=== PATIENT | male | born 1950 | race Caucasian/White ===

== ENCOUNTER 2016-11-08 09:23 | Emergency (ER) | payer MEDICARE ==
--- NOTE | 2016-11-08 10:04 | ED Physician Documentation ---
History of Present Illness - Stated complaint Stated Complaint: DIZZY, CHILLS, UNSTABLE - Chief complaint Chief Complaint: General - History obtained from History obtained from: Patient, Family - History of Present Illness Timing: Today - Additonal information Additional information: 66-year-old male with a prior history of brainstem CVA about 9 years ago has developed some dizziness and chills. He has had some issue with his left ear for the past 10 days with muffled hearing and extraneous sounds. He has been using a Kathy pot he has been getting some yellow-green drainage from that and he has had chills. He has ulcerations to his left ankle been present for several months and he is using Melaleuca honey to treat these Review of Systems Constitutional: reports: Chills, Myalgias, Fatigue. denies: Fever Eyes: denies: Decreased vision Ears: reports: Loss of hearing, Ear pain, Tinnitus/ringing Nose: reports: Rhinorrhea / runny nose, Congestion Throat: reports: Sore throat Cardiac: denies: Chest pain / pressure, Palpitations Respiratory: denies: Dyspnea, Cough GI: denies: Abdominal Pain, Nausea, Vomiting : denies: Dysuria, Frequency Skin: reports: Rash, Lesions Musculoskeletal: reports: Extremity swelling. denies: Neck pain, Back pain, Extremity pain Neurologic: denies: Generalized weakness, Focal weakness, Numbness PD PAST MEDICAL HISTORY - Present Medications Home Medications: Ambulatory Orders Medication Instructions Recorded Confirmed Amox/Clav 875/125 [Augmentin] 1 each PO Q12H #30 tablet 11/08/16 Naproxen Sodium [Aleve] 2 - 4 tab PO DAILY PRN 11/08/16 11/08/16 - Allergies Allergies/Adverse Reactions: Allergies Allergy/AdvReac Type Severity Reaction Status Date / Time No Known Drug Allergies Allergy Verified 11/08/16 09:32 - Social History Does the pt smoke?: Yes Smoking Status: Current every day smoker PD ED PE NORMAL - Vitals Vital signs reviewed: Yes (Hypertensive) - General General: Alert and oriented X 3, No acute distress, Well developed/nourished - HEENT HEENT: Atraumatic, PERRL, EOMI, Moist mucous membranes, Pharynx benign, Other - Neck Neck: Supple, no meningeal sign (The left TM is thickened and lichenified without erythema or distortion of landmarks the right is clear pharynx is clear) , No bony TTP - Cardiac Cardiac: RRR - Respiratory Respiratory: No respiratory distress, Clear bilaterally - Abdomen Abdomen: Soft, Non tender - Back Back: No CVA TTP, No spinal TTP - Derm Derm: Normal color, Warm and dry - Extremities Extremities: No deformity, Other (There are superficial ulcerations to the skin surrounding the ankle on the left side. There are photographs patient is brought in of his ankle from last night showing a deep violaceous erythema around the entire ankle and following treatment with the honey the ulcerations to the skin of formed and the erythema has receded.) - Neuro Neuro: No motor deficit, No sensory deficit - Psych Psych: Normal mood, Normal affect Results - Vitals Vitals: Vital Signs - 24 hr 11/08/16 11/08/16 09:28 10:42 Temperature 36.0 C L Heart Rate 68 62 Respiratory 18 16 Rate Blood Pressure 153/87 H 136/76 H O2 Saturation 98 98 Oxygen O2 Source Room air - Labs Labs: Laboratory Tests 11/08/16 11/08/16 11/08/16 10:30 10:30 10:30 WBC 5.0 RBC 4.98 Hgb 14.3 Hct 41.8 L MCV 83.9 MCH 28.7 MCHC 34.2 RDW 13.9 Plt Count 168 MPV 6.4 L Neut # 3.1 Lymph # 1.0 L Dukes # 0.5 Eos # 0.3 Baso # 0.0 Absolute Nucleated RBC 0.00 Nucleated RBCs 0.0 ESR Sodium 137 Potassium 4.2 Chloride 106 Carbon Dioxide 23 Anion Gap 8.0 BUN 23 H Creatinine 1.1 Estimated GFR (MDRD) 67 L Glucose 112 H Calcium 8.8 Total Bilirubin 0.7 AST 27 ALT 15 Alkaline Phosphatase 82 Troponin I < 0.04 C-Reactive Protein < 1.0 Total Protein 7.1 Albumin 3.8 Globulin 3.3 Albumin/Globulin Ratio 1.2 Lipase 30 11/08/16 10:30 WBC RBC Hgb Hct MCV MCH MCHC RDW Plt Count MPV Neut # Lymph # Dukes # Eos # Baso # Absolute Nucleated RBC Nucleated RBCs ESR 78 H Sodium Potassium Chloride Carbon Dioxide Anion Gap BUN Creatinine Estimated GFR (MDRD) Glucose Calcium Total Bilirubin AST ALT Alkaline Phosphatase Troponin I C-Reactive Protein Total Protein Albumin Globulin Albumin/Globulin Ratio Lipase - Rads (name of study) CT head without Radiology: Prelim report reviewed (Impression: 1. No acute abnormality. No posttraumatic change seen intracranial. No hemorrhages, mass, hydrocephalus or findings suspicious for stroke.2. Postprocedure changes in the right orbit with radiopaque circumferential external scleral band and small amount of air between surgically placed band and underlying globe. No prior study currently available to assess for change. No gross surrounding edema suspicious for an active/aggressive infectious or inflammatory process. Clinical correlation needed.), EMP read indepedently, See rad report CT sinuses Radiology: Prelim report reviewed (Impression: 1. Complete opacification of sphenoid sinuses. Surrounding bony changes show a pattern consistent with chronic reactive change. No expansile or destructive changes. Chronic obstructive sinusitis can have this appearance. No discrete underlying mass is seen. Correlation with MRI with contrast can also be considered for further assessment.2. Mild mucosal thickening in the maxillary sinuses without air- fluid levels or obstructive changes hypoplastic frontal sinuses bilaterally.3. Postoperative changes with external right scleral band and air between the scleral band and right globe. No prior study available to assess acuity. No surrounding inflammatory changes seen to suggest an active/infectious or inflammatory process. Clinical correlation needed.), EMP read indepedently, See rad report Procedures - IVC sono (time) 1000 Bedside IVC sono: IVC measures (cm) (1.6), IVC collapsed c insp (cm) (1.02), Euvolemia PD MEDICAL DECISION MAKING - ED course Complexity details: reviewed results, re-evaluated patient, considered differential, d/w patient, d/w family ED course: 66-year-old male with no prior history here has had prior CVA to the brainstem about 10 years ago and this morning he has developed some chills and malaise and sinus symptoms. He does not feel dehydrated and his dizziness is now resolved he did not develop nausea.He has been treating wounds on his ankle that appear unusual. They do not appear to be a straightforward cellulitis and I am concerned about a autoimmune vasculitis. He gives further history of a prior incident of autoimmune phenomena in 1979 that required high doses of steroid 4 months. He also gives a history of autoimmune disease in his sister. Here in the emergency department he has sphenoid sinusitis on CT examination. He is treated with dexamethasone and Rocephin in the emergency department and we will place him on some Augmentin. I recommended he follow-up with ENT and with dermatology at the [facility] as I suspect there is an autoimmune phenomena that needs to be addressed. Today his sedimentation rate is markedly elevated CRP is normal as is the white blood cell count. Departure - Departure Disposition: 01 Home, Self Care Clinical Impression: Vasculitis Sphenoid sinusitis Qualifiers: Chronicity: unspecified Qualified Code(s): J32.3 - Chronic sphenoidal sinusitis Condition: Stable Instructions: ED Sinusitis Abx Tx Follow-Up: Anuel Solomon MD [Provider Admit Priv/Credential] - Prescriptions: Amox/Clav 875/125 [Augmentin] 1 each PO Q12H #30 tablet Comments: The markings you have on your ankle are concerning for a autoimmune phenomena. Follow-up with dermatology for further evaluation. The sinus symptoms are expected to improve and if you do not have improvement or have recurrence follow -up with ear nose and throat.
[2016-11-08 10:35] LABS: BASOPHILS % (AUTO) 0.6 %; EOSINOPHILS # (AUTO) 0.3 10^3/uL (0.0-0.7); EOSINOPHILS % (AUTO) 6.5 %; HCT - HEMATOCRIT 41.8 % (42.0-52.0); HGB - HEMOGLOBIN 14.3 g/dL (14.0-18.0); LYMPHOCYTES % (AUTO) 20.6 %; MEAN CORPUSCULAR HEMOGLOBIN 28.7 pg (27.0-31.0); MEAN CORPUSCULAR HGB CONC 34.2 g/dL (32.0-36.0); MEAN CORPUSCULAR VOLUME 83.9 fL (80.0-94.0); MEAN PLATELET VOLUME 6.4 fL (7.4-11.4); MONOCYTES # (AUTO) 0.5 10^3/uL (0.0-1.0); MONOCYTES % (AUTO) 10.8 %; NEUTROPHILS # (AUTO) 3.1 10^3/uL (1.5-6.6); NEUTROPHILS % (AUTO) 61.5 %; RED BLOOD COUNT 4.98 10^6/uL (4.70-6.10); RED CELL DISTRIBUTION WIDTH 13.9 % (12.0-15.0)
--- NOTE | 2016-11-08 10:46 | CT Preliminary Report ---
Exam: CT Head W/O IMPRESSION: 1. No acute abnormality. No posttraumatic change seen intracranially. No hemorrhage, mass, hydrocepha daniel or findings suspicious for stroke. 2. Postprocedure changes in right orbit with radiopaque circumferential external scleral band and sma ll amount of air between surgically placed band and underlying globe. No prior study currently availa ble to assess for change. No gross surrounding edema suspicious for an active/aggressive infectious o r inflammatory process. Clinical correlation needed. [facility] SITE ID: [id number]
--- NOTE | 2016-11-08 10:49 | CT Report ---
EXAM: CT HEAD EXAM DATE: 11/08/2016 10:35 AM. CLINICAL HISTORY: Dizziness head injury 2 months ago. . COMPARISON: None. TECHNIQUE: Multiaxial CT images were obtained from the foramen magnum to the vertex. IV contrast: Non e. Reformats: Coronal. In accordance with CT protocol optimization, one or more of the following dose reduction techniques w ere utilized for this exam: automated exposure control, adjustment of mA and/or KV based on patient s ize, or use of iterative reconstructive technique. FINDINGS: Parenchyma: No intraparenchymal hemorrhage. No evidence of mass, midline shift, or CT findings of inf arction. Guerin-white differentiation is distinct. Extraaxial Spaces: Normal for age. No subdural or epidural collections identified. Ventricles: Normal in size and position. Sinuses: Imaged paranasal sinuses and mastoids show no significant abnormality. Bones: No evidence of fracture or calvarial defect. Other: Circumferential radiopaque band around right globe with small amount of air between this struc ture and underlying globe. Orbits otherwise unremarkable. IMPRESSION: 1. No acute abnormality. No posttraumatic change seen intracranially. No hemorrhage, mass, hydrocepha daniel or findings suspicious for stroke. 2. Postprocedure changes in right orbit with radiopaque circumferential external scleral band and sma ll amount of air between surgically placed band and underlying globe. No prior study currently availa ble to assess for change. No gross surrounding edema suspicious for an active/aggressive infectious o r inflammatory process. Clinical correlation needed. [facility] Referring Provider Line: [phone] SITE ID: [id number]
[2016-11-08 10:53] LABS: ALBUMIN/GLOBULIN RATIO 1.2 (1.0-2.2); BILIRUBIN,TOTAL 0.7 mg/dL (0.2-1.0); BUN - BLOOD UREA NITROGEN 23 mg/dL (6-20); CALCIUM 8.8 mg/dL (8.5-10.3); CARBON DIOXIDE - CO2 23 mmol/L (21-32); CHLORIDE 106 mmol/L (101-111); CREATININE 1.1 mg/dL (0.6-1.2); GFR - MDRD 67 (>89); GLUCOSE 112 mg/dL (70-100); LIPASE 30 U/L (22-51); POTASSIUM 4.2 mmol/L (3.5-5.0); SODIUM 137 mmol/L (135-145); TOTAL PROTEIN 7.1 g/dL (6.7-8.2)
--- NOTE | 2016-11-08 10:53 | CT Preliminary Report ---
Exam: CT Sinuses IMPRESSION: 1. Complete opacification of sphenoid sinuses. Surrounding bony changes show a pattern consistent wit h chronic reactive change. No expansile or destructive changes. Chronic obstructive sinusitis can hav e this appearance. No discrete underlying mass is seen. Correlation with MRI with contrast can also b e considered for further assessment. 2. Mild mucosal thickening in the maxillary sinuses without air-fluid levels or obstructive changes. Hypoplastic frontal sinuses bilaterally. 3. Postoperative changes with external right scleral band and air between scleral band and right glob e. No prior study available to assess acuity. No surrounding inflammatory change is seen to suggest a n acute/active infectious or inflammatory process. Clinical correlation needed. [facility] SITE ID: [id number]
--- NOTE | 2016-11-08 10:56 | CT Report ---
EXAM: CT SINUS EXAM DATE: 11/08/2016 10:35 AM. HISTORY: Dizziness. Left ear pain and sinus drainage COMPARISONS: Head CT 11/08/2016. TECHNIQUE: Routine multi-axial CT imaging performed through the sinuses. Iodinated IV contrast: None. Reconstructions: Coronal. In accordance with CT protocol optimization, one or more of the following dose reduction techniques w ere utilized for this exam: automated exposure control, adjustment of mA and/or KV based on patient s ize, or use of iterative reconstructive technique. FINDINGS: RIGHT Frontal: Hypo-plastic. No mucosal thickening. Ethmoid: Mild mucosal thickening. Maxillary: Mild mucosal thickening Sphenoid: Complete opacification Drainage Pathways: The frontal recess, ostiomeatal complex and sphenoethmoidal recess are patent and normal. LEFT Frontal: Hypoplastic. No mucosal thickening. Ethmoid: Normal. Maxillary: Mild mucosal thickening Sphenoid: Complete opacification Drainage Pathways: The frontal recess, ostiomeatal complex and sphenoethmoidal recess are patent and normal. Nasal Cavity: Mild inferior rightward bowing of cartilaginous septum. Posterior septum/bony septum mi dline. No nasal airway occlusion. No mass or significant anatomic abnormality evident. Osseous Structures: Unremarkable. Orbits: Postop change with external scleral band on the right. Small amount of air between scleral ba nd and right globe. Otherwise unremarkable. Other: None. IMPRESSION: 1. Complete opacification of sphenoid sinuses. Surrounding bony changes show a pattern consistent wit h chronic reactive change. No expansile or destructive changes. Chronic obstructive sinusitis can hav e this appearance. No discrete underlying mass is seen. Correlation with MRI with contrast can also b e considered for further assessment. 2. Mild mucosal thickening in the maxillary sinuses without air-fluid levels or obstructive changes. Hypoplastic frontal sinuses bilaterally. 3. Postoperative changes with external right scleral band and air between scleral band and right glob e. No prior study available to assess acuity. No surrounding inflammatory change is seen to suggest a n acute/active infectious or inflammatory process. Clinical correlation needed. [facility] Referring Provider Line: [phone] SITE ID: [id number]
[2016-11-08] MEDS ORDERED: cefTRIAXone 1 GM VIAL IM STA (11:14)
[2016-11-08] MEDS ORDERED: DEXAMETHASONE 10 MG/ML VIAL PO STA (11:25)
[2016-11-08] MEDS ORDERED: cefTRIAXone 1 GM VIAL ONE (11:25)
[2016-11-08] MEDS ORDERED: LIDOCAINE 1% 2 ML VIAL ONE (11:25)
[2016-11-08] MEDS ORDERED: CHERRY SYRUP 10 ML UDC PO ONE (11:32)
[2016-11-08] MEDS ORDERED: DEXAMETHASONE 10 MG/ML VIAL ONE (11:32)
[2016-11-08 11:57] VITALS: BP 133/74
== END 2016-11-08 12:03 | disposition home or self-care (01) ==
LOC: ED 09:23
DX: I77.6 Arteritis, unspecified (principal); J32.3 Chronic sphenoidal sinusitis; Z86.73 Personal history of transient ischemic attack (TIA), and cerebral infarction without residual deficits; F17.200 Nicotine dependence, unspecified, uncomplicated
CPT/HCPCS: 36415; 70450; 70486; 80053; 83690; 84484; 85025; 85651; 86140; 96372; 99283; A9270

== ENCOUNTER 2018-07-26 08:36 | Day surgery (SDC) | payer MEDICARE ==
[2018-07-26] MEDS ORDERED: LACTATED RINGERS 1,000 ML IV ONE (09:16)
[2018-07-26] MEDS ORDERED: MIDAZOLAM 2 MG/2 ML VIAL IVP ONE (09:45)
[2018-07-26] MEDS ORDERED: fentaNYL 250 MCG/5 ML VIAL IVP ONE (09:45)
[2018-07-26] MEDS ORDERED: IOVERSOL 320 100 ML VIAL IVP ONE ×2 (11:11→12:13)
[2018-07-26 11:28] LABS: HGB - HEMOGLOBIN 13.7 g/dL (14.0-18.0); MEAN CORPUSCULAR HEMOGLOBIN 28.5 pg (27.0-31.0); MEAN CORPUSCULAR HGB CONC 33.7 g/dL (32.0-36.0); MEAN CORPUSCULAR VOLUME 84.7 fL (80.0-94.0); MEAN PLATELET VOLUME 6.4 fL (7.4-11.4); RED BLOOD COUNT 4.8 10^6/uL (4.70-6.10); RED CELL DISTRIBUTION WIDTH 13.4 % (12.0-15.0); WHITE BLOOD COUNT 5.9 x10^3/uL (4.8-10.8)
[2018-07-26 11:41] LABS: ALBUMIN 3.6 g/dL (3.2-5.5); ALBUMIN/GLOBULIN RATIO 1.3 (1.0-2.2); BILIRUBIN,TOTAL 1.1 mg/dL (0.2-1.0); CALCIUM 8.5 mg/dL (8.5-10.3); TOTAL PROTEIN 6.4 g/dL (6.7-8.2)
[2018-07-26 12:11] VITALS: BP 137/79
--- NOTE | 2018-07-26 12:36 | CT Report ---
Reason: ABDNORMAL COLONOSCOPY Procedure Date: 07/26/2018 Accession Number: [id number] / [id number] Procedure: CT - Abdomen/Pelvis W CPT Code: FULL RESULT: EXAM: CT ABDOMEN AND PELVIS EXAM DATE: 07/26/2018 12:05 PM. CLINICAL HISTORY: ABNORMAL COLONOSCOPY. COMPARISONS: None. TECHNIQUE: Routine helical CT imaging was performed through the abdomen and pelvis. IV contrast: 100 cc of Optiray 320 contrast. Enteric contrast: No. Reconstructions: Coronal and sagittal. In accordance with CT protocol optimization, one or more of the following dose reduction techniques were utilized for this exam: automated exposure control, adjustment of mA and/or KV based on patient size, or use of iterative reconstructive technique. FINDINGS: Lung Bases: Unremarkable. Liver: Normal. No masses. Gallbladder/Bile Ducts: Unremarkable. Spleen: Normal. Pancreas: Normal. Adrenal Glands: Normal. Kidneys: Normal. No masses or hydronephrosis. Incidental extrarenal pelvis on the left. Peritoneal Cavity/Bowel: There is a 2.5 x 2.5 x 3.7 cm irregular enhancing mass of the cecum just anterior to the ileocecal valve. There is no adenopathy although there are 4-5 mildly dense sub-6 mm nodes in the adjacent mesentery, which are nonspecific. There is a small amount of fat stranding in the medial mesentery. Adjacent appendix is normal. No additional mucosal lesions noted in the colon; small bowel appears normal. No free fluid. Pelvic Organs: Normal. The bladder and visualized pelvic organs are within normal limits. Vasculature: No aneurysms or other significant abnormality. Bones: No significant abnormality. Other: None. IMPRESSION: 1. 2.5 x 2.5 x 3.7 cm enhancing mass of the cecum as described consistent with a primary malignancy/consistent with finding of abnormal colonoscopy. Minor stranding in the adjacent medial mesenteric fat, but no associated adenopathy. [facility]
== END 2018-07-26 08:37 | disposition home or self-care (01) ==
LOC: SDS 08:36
PROVIDERS: ATTEND Surgery
PROC: 0DBH8ZX Excision of Cecum, Via Natural or Artificial Opening Endoscopic, Diagnostic (ICD-10-PCS; principal; 2018-07-26 10:15)
DX: C18.0 Malignant neoplasm of cecum (principal); K64.8 Other hemorrhoids; K57.30 Diverticulosis of large intestine without perforation or abscess without bleeding
CPT/HCPCS: 36415; 45380; 74177; 80053; 82378; 85027; 93005; J3010; J7120; Q9967

== ENCOUNTER 2018-07-27 09:21 | Inpatient (IN) | payer MEDICARE ==
[~2018-07-27 09:21] MED LIST: CEFOXITIN IV ONE; SODIUM CHLORIDE 0.9% IV ONE
[2018-07-27] MEDS ORDERED: LACTATED RINGERS 1,000 ML IV ONE ×2 (09:42→14:51)
--- NOTE | 2018-07-27 10:14 | ANESTHESIA ---
Pre-Anesthesia VS, & Labs - Diagnosis colon mass - Procedure laparoscopic hemicolectomy Vital Signs: Temp Pulse Resp BP Pulse Ox 36.4 C L 70 18 144/87 H 97 07/27/18 09:42 07/27/18 09:42 07/27/18 09:42 07/27/18 09:42 07/27/18 09:42 Height 6 ft 4 in Weight (kg) 123.3 kg Body Mass Index 34.0 - NPO >8 hours Home Medications and Allergies Allergies/Adverse Reactions: Allergies Allergy/AdvReac Type Severity Reaction Status Date / Time No Known Drug Allergies Allergy Verified 11/08/16 09:32 Anes History & Medical History - Anesthetic History Anesthesia Complications: reports: No previous complications - Medical History Cardiovascular: reports: None Pulmonary: reports: None Gastrointestinal: reports: Hepatitis Urinary: reports: None Musculoskeletal: reports: Osteoarthritis, Other Endocrine/Autoimmune: reports: None Skin: reports: Other Smoking Status: Never smoker - Surgical History Eyes Ears Nose Throat (EENT): Detached retina repair, Tonsil/Adenoidectomy, Other Orthopedic: Arthroscopic surgery Exam General: Alert Dental: WNL, Other (front implant, few missing, none loose) Mouth Opening: Greater than 4 Fingerbreadths Mallampati classification: II Thyromental Distance: greater than 6 cm Respiratory: Lungs clear Cardiovascular: Regular rate, Normal S1, Normal S2 Mental/Cognitive Status: Alert/Oriented X3 Plan Anesthesia Type: General Consent for Procedure(s) Verified and Reviewed: Yes Code Status: Attempt Resuscitation ASA classification: 2-Mild systemic disease Is this case an emergency?: No
[2018-07-27] MEDS ORDERED: BUPIVACAINE 0.5% PF 30 ML VIAL ONE (10:34)
[2018-07-27] MEDS ORDERED: BUPIVACAINE 0.5% PF 30 ML VIAL SUBQ ONE ×2 (12:08→15:00)
[2018-07-27] MEDS ORDERED: ceFAZolin 1 GM VIAL IR ONE (14:51)
[2018-07-27] MEDS ORDERED: ROCURONIUM 50 MG/5 ML VIAL IVP ONE (15:00)
[2018-07-27] MEDS ORDERED: GLYCOPYRROLATE 1 MG/5 ML VIAL IVP ONE (15:00)
[2018-07-27] MEDS ORDERED: PROPOFOL 200 MG/20 ML VIAL IVP ONE (15:00)
[2018-07-27] MEDS ORDERED: HYDROmorphone 1 MG/ML SYRINGE IM ONE (15:00)
[2018-07-27] MEDS ORDERED: MIDAZOLAM 2 MG/2 ML VIAL IVP ONE (15:00)
[2018-07-27] MEDS ORDERED: LIDOCAINE-MPF 1% 30 ML VIAL SUBQ ONE (15:00)
[2018-07-27] MEDS ORDERED: KETOROLAC 30 MG/ML VIAL IVP ONE (15:00)
[2018-07-27] MEDS ORDERED: ACETAMINOPHEN 1,000 MG/100 ML 100 ML IV ONE (15:00)
[2018-07-27] MEDS ORDERED: fentaNYL 250 MCG/5 ML VIAL IVP ONE (15:00)
[2018-07-27] MEDS ORDERED: ONDANSETRON 4 MG/2 ML VIAL IVP ONE (15:00)
[2018-07-27] MEDS ORDERED: DEXAMETHASONE 4 MG/ML VIAL IVP ONE (15:00)
[2018-07-27] MEDS ORDERED: NEOSTIGMINE 1 MG/1 ML 10 ML MDV IVP ONE (15:00)
[2018-07-27] MEDS ORDERED: HYDROmorphone 1 MG/ML CARPUJECT IVP PRN (15:49)
[2018-07-27] MEDS ORDERED: ONDANSETRON 4 MG/2 ML VIAL IVP PRN (15:49)
--- NOTE | 2018-07-27 16:07 | OPERATIVE REPORT ---
Operative Report - General Admit Date: 07/27/18 Planned Procedure: Laparoscopic right hemicolectomy, possible open right hemicolectomy, possible ileostomy, possible colostomy Pre-Op Diagnosis: Cecal adenocarcinoma Procedure Performed: SILS laparoscopic right hemicolectomy Post Op Diagnosis: Same - Procedure Note Primary Surgeon: Ziggy Spencer MD Anesthesia Provider: Gerri Corona CRNA Anesthesia Technique: General ET tube, Local (30 mL of half percent Marcaine), Other (TAP block) IV Fluids (mL): 1,800 Estimated Blood Loss (mL): 200 Urine Output (mL): 350 Drain/Tube Type: Duncan Ny round drain, Other (None) Complications: None. - Other Other Information/Narrative: OPERATIVE DESCRIPTION/REPORT: After verbal and written informed consent was obtained detailing the risks of infection, bleeding with all of its risks including transfusion, and the patient was brought to the operative suite and placed initially in the supine position on the operating room table and then once anesthetized in stirrups taking care to pad all extremities. Monitoring devices were applied along with TEDs and pneumatic compressive stockings. Care was taken to avoid pressure points. Prophylactic antibiotics were given. An adequate level of general endotracheal anesthesia was established by [anesthesiologist]. The abdomen was then prepped with ChloraPrep and draped in a sterile fashion. A "time in" then confirmed that the patient was identified with 3 identifiers (name, date and medical record number), the history and physical was in the chart, the signed consent confirming the procedure was in the chart, the patient was in the correct position, the aforementioned prophylactic measures were in place or given, we had the correct personnel and equipment to complete the procedure and that anesthesia, surgery and nursing were given an opportunity to express any concerns. A 4 cm transverse incision was made just supraumbilically starting at the umbilicus and going to the patient's right. Dissection down to the anterior fascia was completed using a scalpel as well as Bovie electrocautery for hemostasis. The anterior fascia was incised using Bovie electrocautery and the rectus muscles were retracted laterally. The posterior fascia and the peritoneum were incised getting entry into the abdomen without incident. The incision was lengthened to the length of our skin incision. Through this opening was placed a SILS port and 3 ports were placed into the SILS gel. The abdomen was then insufflated using carbon dioxide to a steady-state pressure of 15 mmHg with carbon dioxide. The abdomen was then examined and no other overt pathology was noted. In order to complete the operation a 5 mm port was placed 2 fingerbreadths above and 2 fingerbreadths medial to the left anterior iliac spine. This is placed under direct vision without incident. The patient was then place in a rather steep Trendelenberg position with the left lateral decubitus tilt and a medial to lateral approach was employed. The interface of the mesentary and the retroperitoneum was opened using serial application of Ligasure. In so doing and with some traction and countertraction the ileocolic and right colic arteries and their corresponding veins came into view, as well as relatively avascular mesenteric windows, above and below the vessels. Both arteries were circumferentially isolated. The right ureter was seen and carefully preserved. These windows were used for retraction lifting the mesentary to the anterior abdominal wall so as to mini micheline trauma to the tissues. With the ileocolic artery and right colonic artery skeletonized and the right ureter clearly and safely away from the dissection the arteries and veins were ligated using Ligasure as close to their origin as possible to ensure that an adequate lymph node yield was achieved. The terminal ileum were then freed from their lateral attachments using serial application of LigaSure. The appendix was stuck to the right colon and I believed that it would come up with the right colon. Dissection from inferior to superior along the white line of Toldt then allowed the colon to be freely mobilized all the way up to the hepatic flexure. The hepatic flexure was taken in a similar manner with using serial application of the LigaSure. At all times, care was taken to ensure the duodenum was visualized and unharmed. In this manner, I believed that the right colon could be brought to the midline easily. Attachments of the omentum to the distal right colon and proximal transverse colon were taken using serial application of the Ligasure. With this final piece of mobilization I was convinced that the right colon could come medially and the transverese colon inferiorly to allow for resection and anastamosis at the skin level. A Prestige grasper placed through one of the SILS ports. The insufflation was stopped and the SILS port removed leaving the sleeve in place. The Prestige grasper was then used to bring the right colon terminal ileum. Unfortunately, despite the extensive dissection of the right colon with gentle traction the tumor fractured as I was trying to bring it up through the wound. With the tumor fractured, the traction that I could impart on the colon disappeared. As such I could not bring the colon up into the wound, I had to make the incision wider (6.5 cm). With the incision wider, I was able to deliver the ileocecal valve and the cecum into the wound. The mesentary of the terminal ileum was scored with a Bovie and opened with the Ligasure. The terminal ileum was transected with a NILAM 75 stapler and the proximal terminal ileum was placed back into the abdomen. This allowed for much better visualization. Despite the lap aroscopic dissection additional dissection was clearly indicated and the right colon and transverse colon was additionally dissected free with Bovie electrocautery. I was able to free the colon coming "up" the right colon and progressing to the mid-transverse colon. The patient had a significant amount of right colon as it was markedly redundant. The automatic pursestring keno clerk was placed across the terminal ileum proximal to the staple line and the pursestring was created using a 3-0 Prolene on a Rigoberto needle. The stapled end was removed using Carson scissors and the anvil of a 25 mm EEA stapler was placed in the open end. The pursestring suture was then tied tight around the post. A Ary was placed across the proximal transverse colon to minimize spillage and distal to this a colotomy was made to introduce the EEA stapler. The spike of the stapler was placed through the inferior taenia of the mid-transverse colon and the anvil was placed affirmatively over the spike. The stapler was screwed down tight to the "green zone" and fired thus creating the ileocolostomy. The transverse colon proximal to the anastamosis was closed with an application of the NILAM 75 stapler. The NILAM stapler was reloaded and the fired across the ileum and colon thus completing the resection. The specimen including the terminal ileum, appendix, right colon and hepatic flexure and proximal transverse colon was sent off the operative field. It did not require orientation. Digital manipulation showed that the anastomosis was widely patent. This staple lines were then oversewn using 3-0 Vicryl sutures in a Lembert fashion. The anastamosis was visually checked for a leak and there was none. There was no bleeding noted. The anastomosis was then dropped into the abdomen and the abdomen was copiously irrigated using 4 L warm sterile saline. Due to the opening of the colon the last 500 mL of saline included antibiotic in the irrigant. The effluent was clear. The posterior fascia and peritoneum at the umbilicus were approximated using a 0 looped PDS suture in a running fashion. The anterior fascia was approximated using 0 looped PDS in a running fashion. The incision was injected with half percent Marcaine at the fascial and skin level under direct vision. Meticulous hemostasis was obtained using Bovie electrocautery. The skin incision was approximated with a running 4-0 Monocryl. Mastisol and steristrips were applied. At this point a time out was performed that confirmed that all the counts were correctx2, the procedure that was performed, the blood loss, the IV fluids administered, and the patients condition. The prep was washed off and Benzoin and steristrips were applied. Having tolerated the procedure well, the patient was subsequently extubated and taken to recovery room in good and stable condition. [employer] disclaimer: This document was created in part using voice recognition technology. Because of the inherent limitations of the system ([employer]'s [employer] Dictate user manual states that the licensee understands that speech recognition is a statistical process and that recognition errors are inherent in the process), occasional same sounding word substitutions and grammatical errors do occur and persist despite proofreading. Please read this document for context.
[2018-07-27 16:19] LABS: BASOPHILS % (AUTO) 0.2 %; EOSINOPHILS % (AUTO) 0.1 %; LYMPHOCYTES # (AUTO) 0.3 10^3/uL (1.5-3.5); LYMPHOCYTES % (AUTO) 3.6 %; MEAN CORPUSCULAR HEMOGLOBIN 28.6 pg (27.0-31.0); MEAN CORPUSCULAR HGB CONC 32.9 g/dL (32.0-36.0); MEAN CORPUSCULAR VOLUME 86.9 fL (80.0-94.0); MEAN PLATELET VOLUME 6.4 fL (7.4-11.4); MONOCYTES # (AUTO) 0.3 10^3/uL (0.0-1.0); MONOCYTES % (AUTO) 3.5 %; NEUTROPHILS # (AUTO) 6.8 10^3/uL (1.5-6.6); NEUTROPHILS % (AUTO) 92.6 %; PLT - PLATELET COUNT 193 10^3/uL (130-450); RED CELL DISTRIBUTION WIDTH 13.8 % (12.0-15.0); WHITE BLOOD COUNT 7.4 x10^3/uL (4.8-10.8)
[2018-07-27 16:31] LABS: ALBUMIN 3.5 g/dL (3.2-5.5); ALBUMIN/GLOBULIN RATIO 1.4 (1.0-2.2); BILIRUBIN,TOTAL 0.7 mg/dL (0.2-1.0); CALCIUM 8.2 mg/dL (8.5-10.3); CREATININE 1.4 mg/dL (0.6-1.2)
[2018-07-27] MEDS: ACETAMINOPHEN 1,000 MG/100 ML 100 ML IV SCH ×2 (16:36→21:31)
[2018-07-27] MEDS: SODIUM CHLORIDE FLUSH 0.9% 10 ML SYRINGE IVP SCH (16:36)
[2018-07-27] MEDS: PIPERACILLIN/TAZOBACTAM 3.375 GM in SODIUM CHLORIDE 0.9% MINIBAG 100 ML IV SCH (18:58)
[2018-07-27] MEDS: LACTATED RINGERS 1,000 ML IV SCH (21:30)
[2018-07-28] MEDS: PIPERACILLIN/TAZOBACTAM 3.375 GM in SODIUM CHLORIDE 0.9% MINIBAG 100 ML IV SCH ×2 (00:07→06:37)
[2018-07-28] MEDS: SODIUM CHLORIDE FLUSH 0.9% 10 ML SYRINGE IVP SCH ×3 (02:37→16:09)
[2018-07-28] MEDS: ACETAMINOPHEN 1,000 MG/100 ML 100 ML IV SCH ×4 (03:54→22:04)
[2018-07-28 05:40] LABS: HGB - HEMOGLOBIN 13.6 g/dL (14.0-18.0); LYMPHOCYTES # (AUTO) 0.4 10^3/uL (1.5-3.5); LYMPHOCYTES % (AUTO) 3.8 %; MEAN CORPUSCULAR HEMOGLOBIN 28.7 pg (27.0-31.0); MEAN CORPUSCULAR HGB CONC 33.5 g/dL (32.0-36.0); MEAN CORPUSCULAR VOLUME 85.8 fL (80.0-94.0); MEAN PLATELET VOLUME 6.6 fL (7.4-11.4); MONOCYTES # (AUTO) 0.7 10^3/uL (0.0-1.0); MONOCYTES % (AUTO) 7.2 %; NEUTROPHILS # (AUTO) 8.8 10^3/uL (1.5-6.6); PLT - PLATELET COUNT 167 10^3/uL (130-450); RED BLOOD COUNT 4.75 10^6/uL (4.70-6.10); RED CELL DISTRIBUTION WIDTH 13.4 % (12.0-15.0); WHITE BLOOD COUNT 9.9 x10^3/uL (4.8-10.8)
[2018-07-28 05:51] LABS: ALBUMIN 3.2 g/dL (3.2-5.5); ALBUMIN/GLOBULIN RATIO 1.1 (1.0-2.2); BILIRUBIN,TOTAL 0.8 mg/dL (0.2-1.0); CALCIUM 8.2 mg/dL (8.5-10.3); CREATININE 1.1 mg/dL (0.6-1.2)
[2018-07-28] MEDS: PANTOPRAZOLE 40 MG VIAL IVP SCH (06:37)
[2018-07-28] MEDS: SODIUM CHLORIDE FLUSH 0.9% 10 ML SYRINGE IVP PRN (06:38)
[2018-07-28] MEDS: LACTATED RINGERS 1,000 ML IV SCH (16:50)
--- NOTE | 2018-07-28 19:12 | PROVIDER PROGRESS NOTE ---
Subjective - General Admit Date: 07/27/18 Procedure Date: 07/27/18 Post Op Days: 1 Procedure Performed: SILS right hemicolectomy - Review of Systems Wound/Incisions: positive: Healing well. negative: Erythema General: positive: No symptoms (Passing gas. Minimal to no pain.) HEENT: positive: No symptoms Pulmonary: positive: No symptoms Cardiovascular: positive: No symptoms Gastrointestinal: positive: Abdominal pain (Minimal.), Flatus. negative: Nausea, Vomiting, Difficulty swallowing, Constipation, Diarrhea, Melena, Hematochezia Genitourinary: positive: No symptoms Musculoskeletal: positive: No symptoms Skin: positive: No symptoms Psychiatric: positive: No symptoms Objective - Patient Data Reviewed Vital Signs: Yes Vital Signs: Vital Signs x48h Temp Pulse Pulse Resp BP Pulse Ox 07/28/18 17:55 36.8 C 55 L 16 97 07/28/18 16:03 36.8 C 55 L 18 130/69 97 Weight: Weight 07/26/18 07/27/18 07/28/18 23:59 23:59 23:59 Weight (kg) 123.3 kg Intake & Output: Intake and Output Totals x24h 07/26/18 07/27/18 07/28/18 23:59 23:59 23:59 Intake Total 3040 2776.667 Output Total 1475 1200 Balance 1565 1576.667 - Lab Results Lab Results: 07/28/18 05:10 07/28/18 05:10 Other Lab Results: Lab Results x24hrs 07/28/18 07/28/18 07/28/18 Range/Units 07:24 05:10 05:10 WBC 9.9 (4.8-10.8) x10^3/uL RBC 4.75 (4.70-6.10) 10^6/uL Hgb 13.6 L (14.0-18.0) g/dL Hct 40.7 L (42.0-52.0) % MCV 85.8 (80.0-94.0) fL MCH 28.7 (27.0-31.0) pg MCHC 33.5 (32.0-36.0) g/dL RDW 13.4 (12.0-15.0) % Plt Count 167 (130-450) 10^3/uL MPV 6.6 L (7.4-11.4) fL Neut # (Auto) 8.8 H (1.5-6.6) 10^3/uL Lymph # (Auto) 0.4 L (1.5-3.5) 10^3/uL [place] # (Auto) 0.7 (0.0-1.0) 10^3/uL Eos # (Auto) 0.0 (0.0-0.7) 10^3/uL Baso # (Auto) 0.0 (0.0-0.1) 10^3/uL Absolute Nucleated RBC 0.00 x10^3/uL Nucleated RBC % 0.0 /100WBC Sodium 134 L (135-145) mmol/L Potassium 4.4 (3.5-5.0) mmol/L Chloride 103 (101-111) mmol/L Carbon Dioxide 22 (21-32) mmol/L Anion Gap 9.0 (6-13) BUN 13 (6-20) mg/dL Creatinine 1.1 (0.6-1.2) mg/dL Estimated GFR (MDRD) 67 L (>89) Glucose 174 H (70-100) mg/dL POC Whole Bld Glucose 178 H (70 - 100) mg/dL Calcium 8.2 L (8.5-10.3) mg/dL Total Bilirubin 0.8 (0.2-1.0) mg/dL AST 25 (10-42) IU/L ALT 15 (10-60) IU/L Alkaline Phosphatase 76 (42-121) IU/L Total Protein 6.0 L (6.7-8.2) g/dL Albumin 3.2 (3.2-5.5) g/dL Globulin 2.8 (2.1-4.2) g/dL Albumin/Globulin Ratio 1.1 (1.0-2.2) - Current Medications Current Medications: Current Medications Generic Name Dose Route Start Last Admin Trade Name Freq PRN Reason Stop Dose Admin Lactated Ringer's 1,000 mls @ 50 mls/hr 07/27/18 16:00 07/28/18 16:50 Lr IV 50 mls/hr .Q20H LEONARDO Administration Acetaminophen 100 mls @ 400 mls/hr 07/27/18 16:00 07/28/18 16:34 Ofirmev IV Infused Q6H LEONARDO Infusion Pantoprazole Sodium 40 mg 07/28/18 07:00 07/28/18 06:37 Protonix IVP 40 mg QDAC LEONARDO Administration Sodium Chloride 10 ml 07/27/18 17:00 07/28/18 16:09 Normal Saline Flush 0.9% IVP Not Given 0100,0900,1700 LEONARDO Sodium Chloride 10 ml 07/27/18 15:47 07/28/18 06:38 Normal Saline Flush 0.9% IVP 10 ml PRN PRN Administration NEEDED PER PROVIDER ORDERS - Physical Exam Wound/Incisions: positive: Healing well General Appearance: positive: No acute distress (Sitting in chair speaking with visitors. Already made 5 laps around the nursing station today.) Eyes Bilateral: positive: No lid inflammation, Conjunctivae nml, No scleral icterus ENT: positive: No signs of dehydration Neck: positive: Trachea midline Cardiovascular: positive: Regular rate & rhythm Abdomen: positive: Nml bowel sounds, No distention, Tenderness (Almost none.) Extremities: positive: Non-tender, Full ROM, Nml appearance Neurologic/Psychiatric: positive: Oriented x3, Motor nml, Sensation nml, Mood/affect nml ABX Reporting Has patient been on IV antibiotics over the past 48 hours?: Yes Impression/Plan - Problem List Problem List: D1 s/p SILS right hemicolectomy for cecal malignancy ERAS protocol in place. Patient doing even better than expected. Will start general diet now. Ambulating well. Will re-evaluate in AM. I attest that the patient will be discharged or I will attempt transfer within 96 hours of admission.
[2018-07-29] MEDS: ACETAMINOPHEN 1,000 MG/100 ML 100 ML IV SCH ×3 (04:14→15:39)
[2018-07-29] MEDS: SODIUM CHLORIDE FLUSH 0.9% 10 ML SYRINGE IVP SCH ×3 (04:20→15:40)
[2018-07-29 05:31] LABS: BASOPHILS % (AUTO) 0.1 %; EOSINOPHILS % (AUTO) 0.2 %; LYMPHOCYTES # (AUTO) 0.7 10^3/uL (1.5-3.5); LYMPHOCYTES % (AUTO) 7.8 %; MEAN CORPUSCULAR HEMOGLOBIN 28.9 pg (27.0-31.0); MEAN CORPUSCULAR HGB CONC 33.5 g/dL (32.0-36.0); MEAN CORPUSCULAR VOLUME 86.3 fL (80.0-94.0); MEAN PLATELET VOLUME 6.8 fL (7.4-11.4); MONOCYTES # (AUTO) 0.5 10^3/uL (0.0-1.0); NEUTROPHILS # (AUTO) 7.2 10^3/uL (1.5-6.6); NEUTROPHILS % (AUTO) 85.9 %; PLT - PLATELET COUNT 162 10^3/uL (130-450); RED BLOOD COUNT 4.13 10^6/uL (4.70-6.10); RED CELL DISTRIBUTION WIDTH 13.5 % (12.0-15.0); WHITE BLOOD COUNT 8.3 x10^3/uL (4.8-10.8)
[2018-07-29 05:47] LABS: ALBUMIN 3.2 g/dL (3.2-5.5); ALBUMIN/GLOBULIN RATIO 1.1 (1.0-2.2); BILIRUBIN,TOTAL 0.5 mg/dL (0.2-1.0); CALCIUM 8.5 mg/dL (8.5-10.3); CREATININE 1.1 mg/dL (0.6-1.2)
[2018-07-29] MEDS: SODIUM CHLORIDE FLUSH 0.9% 10 ML SYRINGE IVP PRN (05:54)
[2018-07-29] MEDS: PANTOPRAZOLE 40 MG VIAL IVP SCH (05:54)
[2018-07-29] MEDS: LACTATED RINGERS 1,000 ML IV SCH (15:04)
--- NOTE | 2018-07-29 18:00 | PROVIDER PROGRESS NOTE ---
Subjective - General Admit Date: 07/27/18 Procedure Date: 07/27/18 Post Op Days: 2 Procedure Performed: SILS right hemicolectomy - Review of Systems Wound/Incisions: positive: Healing well General: positive: No symptoms (Passing gas. Minimal to no pain.) HEENT: positive: No symptoms Pulmonary: positive: No symptoms Cardiovascular: positive: No symptoms Gastrointestinal: positive: Abdominal pain (Minimal.), Flatus, Melena (Initially some bloody bowel movements now clearing to dark brown.), Hematochezia. negative: Nausea, Vomiting, Difficulty swallowing, Constipation, Diarrhea Genitourinary: positive: No symptoms Musculoskeletal: positive: No symptoms Skin: positive: No symptoms Psychiatric: positive: No symptoms Objective - Patient Data Reviewed Vital Signs: Yes Vital Signs: Vital Signs x48h Temp Pulse Resp BP Pulse Ox 07/29/18 15:55 36.5 C 57 L 20 119/74 97 Weight: Weight 07/27/18 07/28/18 07/29/18 23:59 23:59 23:59 Weight (kg) 123.3 kg Intake & Output: Intake and Output Totals x24h 07/27/18 07/28/18 07/29/18 23:59 23:59 23:59 Intake Total 3040 2876.667 2400 Output Total 1475 1200 Balance 1565 5458.318 2429 - Lab Results Lab Results: 07/29/18 05:10 07/29/18 05:10 Other Lab Results: Lab Results x24hrs 07/29/18 07/29/18 Range/Units 05:10 05:10 WBC 8.3 (4.8-10.8) x10^3/uL RBC 4.13 L (4.70-6.10) 10^6/uL Hgb 12.0 L (14.0-18.0) g/dL Hct 35.6 L (42.0-52.0) % MCV 86.3 (80.0-94.0) fL MCH 28.9 (27.0-31.0) pg MCHC 33.5 (32.0-36.0) g/dL RDW 13.5 (12.0-15.0) % Plt Count 162 (130-450) 10^3/uL MPV 6.8 L (7.4-11.4) fL Neut # (Auto) 7.2 H (1.5-6.6) 10^3/uL Lymph # (Auto) 0.7 L (1.5-3.5) 10^3/uL [place] # (Auto) 0.5 (0.0-1.0) 10^3/uL Eos # (Auto) 0.0 (0.0-0.7) 10^3/uL Baso # (Auto) 0.0 (0.0-0.1) 10^3/uL Absolute Nucleated RBC 0.01 x10^3/uL Nucleated RBC % 0.1 /100WBC Sodium 140 (135-145) mmol/L Potassium 4.0 (3.5-5.0) mmol/L Chloride 109 (101-111) mmol/L Carbon Dioxide 25 (21-32) mmol/L Anion Gap 6.0 (6-13) BUN 16 (6-20) mg/dL Creatinine 1.1 (0.6-1.2) mg/dL Estimated GFR (MDRD) 67 L (>89) Glucose 135 H (70-100) mg/dL Calcium 8.5 (8.5-10.3) mg/dL Total Bilirubin 0.5 (0.2-1.0) mg/dL AST 26 (10-42) IU/L ALT 16 (10-60) IU/L Alkaline Phosphatase 69 (42-121) IU/L Total Protein 6.0 L (6.7-8.2) g/dL Albumin 3.2 (3.2-5.5) g/dL Globulin 2.8 (2.1-4.2) g/dL Albumin/Globulin Ratio 1.1 (1.0-2.2) - Current Medications Current Medications: Current Medications Generic Name Dose Route Start Last Admin Trade Name Freq PRN Reason Stop Dose Admin Lactated Ringer's 1,000 mls @ 50 mls/hr 07/27/18 16:00 07/29/18 15:04 Lr IV 50 mls/hr .Q20H LEONARDO Administration Acetaminophen 100 mls @ 400 mls/hr 07/27/18 16:00 07/29/18 15:39 Ofirmev IV Not Given Q6H LEONARDO Pantoprazole Sodium 40 mg 07/28/18 07:00 07/29/18 05:54 Protonix IVP 40 mg QDAC ELONARDO Administration Sodium Chloride 10 ml 07/27/18 17:00 07/29/18 15:40 Normal Saline Flush 0.9% IVP Not Given 0100,0900,1700 LEONARDO Sodium Chloride 10 ml 07/27/18 15:47 07/29/18 05:54 Normal Saline Flush 0.9% IVP 10 ml PRN PRN Administration NEEDED PER PROVIDER ORDERS - Physical Exam Wound/Incisions: positive: Dressing dry and intact General Appearance: positive: No acute distress (Sitting in chair having consumed 3rd regular meal.) Eyes Bilateral: positive: No lid inflammation, Conjunctivae nml, No scleral icterus Neck: positive: Trachea midline Respiratory: positive: Chest non-tender, No respiratory distress, Breath sounds nml Cardiovascular: positive: Regular rate & rhythm Abdomen: positive: Nml bowel sounds, No distention, Tenderness (Minimal incisional.) Skin: positive: Color nml Extremities: positive: Non-tender, Full ROM, Nml appearance Neurologic/Psychiatric: positive: Oriented x3, Motor nml, Sensation nml, Mood/affect nml Impression/Plan - Problem List Problem List: D2 s/p SILS right hemicolectomy Doing extremely well but bloody bowel movements combined with drop in H&H has me keeping him overnight to ensure that there is no persistent-continuing blood per rectum. Will follow. Heplock IV. Patient doing very well ambulating.
[2018-07-29] MEDS ORDERED: ACETAMINOPHEN 500 MG TABLET PO PRN (18:04)
[2018-07-29] MEDS: oxyCODONE ER 10 MG TABLET PO SCH (21:25)
[2018-07-30] MEDS: SODIUM CHLORIDE FLUSH 0.9% 10 ML SYRINGE IVP SCH ×2 (01:06→11:20)
[2018-07-30 06:32] LABS: BASOPHILS % (AUTO) 0.3 %; EOSINOPHILS # (AUTO) 0.5 10^3/uL (0.0-0.7); EOSINOPHILS % (AUTO) 6.8 %; LYMPHOCYTES # (AUTO) 1.3 10^3/uL (1.5-3.5); LYMPHOCYTES % (AUTO) 18.8 %; MEAN CORPUSCULAR HEMOGLOBIN 29.2 pg (27.0-31.0); MEAN CORPUSCULAR HGB CONC 34.2 g/dL (32.0-36.0); MEAN CORPUSCULAR VOLUME 85.3 fL (80.0-94.0); MEAN PLATELET VOLUME 6.8 fL (7.4-11.4); MONOCYTES # (AUTO) 0.5 10^3/uL (0.0-1.0); MONOCYTES % (AUTO) 7.3 %; NEUTROPHILS # (AUTO) 4.7 10^3/uL (1.5-6.6); NEUTROPHILS % (AUTO) 66.8 %; PLT - PLATELET COUNT 156 10^3/uL (130-450); RED BLOOD COUNT 3.76 10^6/uL (4.70-6.10); RED CELL DISTRIBUTION WIDTH 13.8 % (12.0-15.0); WHITE BLOOD COUNT 7.1 x10^3/uL (4.8-10.8)
[2018-07-30 06:43] LABS: ALBUMIN/GLOBULIN RATIO 1.2 (1.0-2.2); BILIRUBIN,TOTAL 0.4 mg/dL (0.2-1.0); CALCIUM 8.1 mg/dL (8.5-10.3); TOTAL PROTEIN 5.5 g/dL (6.7-8.2)
[2018-07-30] MEDS ORDERED: PANTOPRAZOLE 40 MG TABLET PO SCH (07:00)
[2018-07-30] MEDS: oxyCODONE ER 10 MG TABLET PO SCH (08:04)
[2018-07-30 08:30] VITALS: BP 139/68
--- NOTE | 2018-07-30 10:38 | DISCHARGE SUMMARY ---
"Discharge Summary Admit Date: 07/27/18 Discharge Date: 07/30/18 Discharging Provider: Ziggy Spencer MD Primary Care Provider: Anuel Giron MD Code Status: Attempt Resuscitation Condition at Discharge: Good Discharge Disposition: 01 Home, Self Care - DIAGNOSES Admission Diagnoses: Cecal adenocarcinoma Discharge Diagnoses with Status of Each Condition: Cecal adenocarcinoma resected - HPI History of Present Illness: 67 year old male who presented to me for a screening colonoscopy which was performed on 07/26/18 showing a large obvious cecal malignancy. Patient was kept on clear liquids and CT scan and CEA ordered. Patient was given oral antibiotics to prep colon and taken to the operating room on 07/27/18 where I performed a SILS right hemicolectomy. Patient has done exceedingly well and I kept him an extra day due to concerns about dropping H&H but this has not become a symptomatic issue. Pathology discussed with patient showing negative margins and no lymph node involvement. This cancer stages out to a Stage IIB. The patient should not require chemotherapy but his case will be discussed at [facility]. The patient will be scheduled to see me next week. The patient is not asking for pain medications and should not require them. - CONSULTS | PROCEDURES Consultations: None. Procedures: SILS RIGHT hemicolectomy - HOSPITAL COURSE Hospital Course: Uncomplicated. - ALLERGIES Allergies/Adverse Reactions: Allergies Allergy/AdvReac Type Severity Reaction Status Date / Time No Known Drug Allergies Allergy Verified 11/08/16 09:32 - MEDICATIONS Home Medications: Ambulatory Orders Medication Instructions Recorded Confirmed Ibuprofen 800 mg PO DAILY 07/28/18 07/28/18 - PHYSICAL EXAM AT DISCHARGE General Appearance: positive: No acute distress Eyes Bilateral: positive: No lid inflammation, Conjunctivae nml, No scleral icterus ENT: positive: No signs of dehydration Neck: positive: Trachea midline Respiratory: positive: Chest non-tender, No respiratory distress, Breath sounds nml Cardiovascular: positive: Regular rate & rhythm Abdomen: positive: Non-tender, Abnml bowel sounds (Ever so slightly decreased.) Skin: positive: Color nml Extremities: positive: Non-tender, Full ROM, Nml appearance Neurologic/Psychiatric: positive: Oriented x3, Motor nml, Sensation nml, Mood/affect nml - LABS Result Diagrams: 07/30/18 05:46 07/30/18 05:46 - QUALITY (Female Hip Fx Only) Was patient sent home on osteoporosis medication?: No - FOLLOW UP Follow Up: Ziggy Spencer MD in 7-14 days - TIME SPENT Time Spent in Discharge (Minutes): 45"
--- NOTE | 2018-07-30 10:48 | Discharge Plan ---
Discharge Plan Disposition: 01 Home, Self Care Condition: Good Diet: Regular Activity Restrictions: No lifting > 15 pounds for 6 weeks. Shower Restrictions: No Driving Restrictions: No Weight Bearing: Full Weight Additional Instructions or Follow Up instructions: Call with any questions or concerns. Eat anything and everything. No Smoking: If you smoke, Please STOP! Call for help. Follow-up with: Anuel Solomon MD [Primary Care Provider] - Ziggy Spencer MD [Provider Admit Priv/Credential] -
== END 2018-07-30 11:21 | disposition home or self-care (01) | DRG 331 ==
LOC: MS2 09:21
PROVIDERS: ADMIT Surgery; ATTEND Surgery
PROC: 07TB4ZZ Resection of Mesenteric Lymphatic, Percutaneous Endoscopic Approach (ICD-10-PCS; 2018-07-27)
PROC: 0DTF4ZZ Resection of Right Large Intestine, Percutaneous Endoscopic Approach (ICD-10-PCS; principal; 2018-07-27 11:00)
DX: C18.0 Malignant neoplasm of cecum (principal); D64.9 Anemia, unspecified; M35.9 Systemic involvement of connective tissue, unspecified; Z86.73 Personal history of transient ischemic attack (TIA), and cerebral infarction without residual deficits; Z87.19 Personal history of other diseases of the digestive system; Z79.52 Long term (current) use of systemic steroids
CPT/HCPCS: 36415; 80053; 85025; A9270; J0131; J1170; J3010; J7120

== ENCOUNTER 2019-04-23 12:49 | Emergency (ER) | payer MEDICARE, MEDICAID ==
--- NOTE | 2019-04-23 13:16 | ED Physician Documentation ---
PD HPI ABD PAIN - Stated complaint Stated Complaint: R SIDE PX/ABD SWEWLLING - Chief complaint Chief Complaint: Abd Pain - History obtained from History obtained from: Patient (68-year-old gentleman who last summer had a colonic mass with resection. Operative date was July 27, [address] Spencer. It was a laparoscopic right hemicolectomy. He woke this morning with a sensation of swelling and mild pain in the right side of the abdomen radiating to the right back. There was no injury. No nausea. Bowel movements have been normal.) Review of Systems Ten Systems: 10 systems reviewed and negative Constitutional: denies: Fever, Chills Cardiac: denies: Chest pain / pressure, Palpitations Respiratory: denies: Dyspnea, Cough PD PAST MEDICAL HISTORY - Past Medical History Cardiovascular: None Respiratory: None Endocrine/Autoimmune: None GI: Hepatitis : None HEENT: Chronic vision loss, Chronic sinusitis, Other Musculoskeletal: Osteoarthritis, Other Derm: Other - Past Surgical History Ortho: Arthroscopic surgery HEENT: Detached retina repair, Tonsil/Adenoidectomy, Other - Present Medications Home Medications: Ambulatory Orders Medication Instructions Recorded Confirmed Ibuprofen 800 mg PO DAILY 07/28/18 07/28/18 - Allergies Allergies/Adverse Reactions: Allergies Allergy/AdvReac Type Severity Reaction Status Date / Time No Known Drug Allergies Allergy Verified 11/08/16 09:32 - Social History Does the pt smoke?: Yes Smoking Status: Never smoker - Family History Family history: reports: Non contributory PD ED PE NORMAL - Vitals Vital signs reviewed: Yes - General General: Alert and oriented X 3, No acute distress - HEENT HEENT: PERRL, EOMI - Neck Neck: Supple, no meningeal sign, No bony TTP - Cardiac Cardiac: RRR, No murmur - Respiratory Respiratory: No respiratory distress, Clear bilaterally - Abdomen Abdomen: Other (Mild tenderness in the right lower abdomen with a sensation of bloating or swelling focal there, possibly a deep hernia.) - Back Back: No CVA TTP, No spinal TTP - Derm Derm: Other (No shingles rash in the area) - Extremities Extremities: No edema, No calf tenderness / cord - Neuro Neuro: Alert and oriented X 3, Normal speech Results - Vitals Vitals: Vital Signs - 24 hr 04/23/19 04/23/19 12:54 15:41 Temperature 36 C L Heart Rate 64 68 Respiratory 18 18 Rate Blood Pressure 154/69 H 138/85 H O2 Saturation 99 98 Oxygen O2 Source Room air - Labs Labs: Laboratory Tests 04/23/19 04/23/19 13:45 13:45 WBC 5.0 RBC 5.40 Hgb 15.3 Hct 46.2 MCV 85.6 MCH 28.3 MCHC 33.1 RDW 13.1 Plt Count 189 MPV 8.7 Neut # (Auto) 3.0 Lymph # (Auto) 1.2 L [place] # (Auto) 0.6 Eos # (Auto) 0.2 Baso # (Auto) 0.0 Absolute Nucleated RBC 0.00 Nucleated RBC % 0.0 Sodium 138 Potassium 4.5 Chloride 104 Carbon Dioxide 25 Anion Gap 9.0 BUN 18 Creatinine 1.1 Estimated GFR (MDRD) 67 L Glucose 96 Calcium 8.6 Total Bilirubin 0.7 AST 27 ALT 18 Alkaline Phosphatase 79 Total Protein 7.3 Albumin 4.2 Globulin 3.1 Albumin/Globulin Ratio 1.4 Lipase 31 - Rads (name of study) CT A/P Radiology: EMP read contemporaneously (Right colonic resection, small bilateral indirect fat-containing inguinal hernias) PD MEDICAL DECISION MAKING - ED course ED course: Presents with right-sided abdominal pain and a sensation of swelling there. CT was negative and his labs are negative. No shingles rash at this juncture but advised to watch for same. Close follow-up precautions were given. Departure - Departure Disposition: 01 Home, Self Care Clinical Impression: Abdominal pain Qualifiers: Abdominal location: right lower quadrant Qualified Code(s): R10.31 - Right lower quadrant pain Condition: Good Record reviewed to determine appropriate education?: Yes Instructions: ED Abdominal Pain Unkn Cause Comments: Your CAT scan is basically normal, you have small inguinal hernias which would not explain the issues you are having today. Return for new or worsening symptoms, make sure you watch out for singles rash as discussed. And return for same.
[2019-04-23] MEDS ORDERED: IOVERSOL 320 100 ML VIAL IVP ONE ×2 (13:52→14:59)
[2019-04-23 14:24] LABS: BASOPHILS % (AUTO) 0.6 %; EOSINOPHILS # (AUTO) 0.2 10^3/uL (0.0-0.7); EOSINOPHILS % (AUTO) 3.8 %; HGB - HEMOGLOBIN 15.3 g/dL (14.0-18.0); LYMPHOCYTES # (AUTO) 1.2 10^3/uL (1.5-3.5); LYMPHOCYTES % (AUTO) 23.8 %; MEAN CORPUSCULAR HEMOGLOBIN 28.3 pg (27.0-31.0); MEAN CORPUSCULAR HGB CONC 33.1 g/dL (32.0-36.0); MEAN CORPUSCULAR VOLUME 85.6 fL (80.0-94.0); MEAN PLATELET VOLUME 8.7 fL (7.4-11.4); MONOCYTES # (AUTO) 0.6 10^3/uL (0.0-1.0); MONOCYTES % (AUTO) 11.2 %; NEUTROPHILS % (AUTO) 60.4 %; PLT - PLATELET COUNT 189 10^3/uL (130-450); RED CELL DISTRIBUTION WIDTH 13.1 % (12.0-15.0)
[2019-04-23 14:36] LABS: ALBUMIN 4.2 g/dL (3.2-5.5); ALBUMIN/GLOBULIN RATIO 1.4 (1.0-2.2); BILIRUBIN,TOTAL 0.7 mg/dL (0.2-1.0); CALCIUM 8.6 mg/dL (8.5-10.3); CREATININE 1.1 mg/dL (0.6-1.2); TOTAL PROTEIN 7.3 g/dL (6.7-8.2)
--- NOTE | 2019-04-23 15:31 | CT Report ---
Reason: Right side abd pain Procedure Date: 04/23/2019 Accession Number: [id number] / [id number] Procedure: CT - Abdomen/Pelvis W CPT Code: Final Report FULL RESULT: EXAM: CT ABDOMEN AND PELVIS EXAM DATE: 04/23/2019 02:58 PM. CLINICAL HISTORY: Right abdominal pain, history of colon resection for colon cancer in July 2018. Right lower quadrant abdominal bulging. COMPARISONS: ABDOMEN/PELVIS W/ 07/26/2018 11:56 AM. TECHNIQUE: Routine helical CT imaging was performed through the abdomen and pelvis. IV contrast: 100 cc Optiray 320. Enteric contrast: No. Reconstructions: Coronal and sagittal. In accordance with CT protocol optimization, one or more of the following dose reduction techniques were utilized for this exam: automated exposure control, adjustment of mA and/or KV based on patient size, or use of iterative reconstructive technique. FINDINGS: Lung Bases: Unremarkable. Liver: A small cystic focus in the left hepatic lobe measures 9 mm similar to prior exam. The liver is otherwise unremarkable. Gallbladder/Bile Ducts: Unremarkable. Spleen: Normal. Pancreas: Normal. Adrenal Glands: Normal. Kidneys: The right kidney and ureter are unremarkable. A left extrarenal pelvis is unchanged, likely normal variant. No calculi or hydronephrosis. Peritoneal Cavity/Bowel: The right colon has been resected in the interval with an ileocolonic anastomosis in the expected location of the proximal transverse colon. No evidence for bowel obstruction, acute inflammatory process or recurrent neoplasm. No extravasation or free fluid present. No adenopathy. Pelvic Organs: The urinary bladder, prostate and rectum are within normal limits. No free fluid or adenopathy. Small fat-containing indirect inguinal hernias are present bilaterally, slightly increased in size compared to prior exam. Vasculature: No aneurysms or other significant abnormality. Bones: Moderate degenerative disk disease present, particularly from the L3-S1 levels as before. No fracture or focal bone lesion identified. Other: None. IMPRESSION: 1. Interval resection of the right colon without complication evident. No evidence for anastomotic leak. 2. No evidence for metastatic disease or adenopathy. 3. Slight increase in size of small bilateral indirect fat-containing inguinal hernias. RAD[facility]
[2019-04-23 15:41] VITALS: BP 138/85
== END 2019-04-23 16:01 | disposition home or self-care (01) ==
LOC: ED 12:49
DX: R10.31 Right lower quadrant pain (principal); K40.20 Bilateral inguinal hernia, without obstruction or gangrene, not specified as recurrent; Z90.49 Acquired absence of other specified parts of digestive tract
CPT/HCPCS: 36415; 74177; 80053; 83690; 85025; 99284; Q9967